=== PATIENT | male | born 1950 | race Caucasian/White ===

== ENCOUNTER → 2019-08-16 | Outpatient (CLI) | payer MEDICARE, OTHER ==
[~2019-08-16] MED LIST: BAYER CHEWABLE81 MG PO; BYSTOLIC 5 MG5 M1 PO; CHLORTHALIDONE25 MG PO; CRESTOR10 MG PO; HYDROCORTISONE30 G9 RECTAL; KEFLEX500 MG PO; MEDROLDOSEPACK PO; MICARDIS40 MG PO; PEPCID20 MG PO; XANAX 0.5 MG0.5 MG PO; ZETIA10 MG PO
== END ==
LOC: M.MRI 08-08 15:52
DX: M48.061 Spinal stenosis, lumbar region without neurogenic claudication (principal); M51.27 Other intervertebral disc displacement, lumbosacral region; G89.29 Other chronic pain; G57.01 Lesion of sciatic nerve, right lower limb

== ENCOUNTER → 2019-09-02 | Outpatient (CLI) | payer MEDICARE, OTHER ==
[~2019-09-02] MED LIST changes: +CARVEDILOL25 MG PO; +FUROSEMIDE 20 M20 MG PO; +Repatha
== END ==
LOC: M.PC 03:46
DX: M51.16 Intervertebral disc disorders with radiculopathy, lumbar region (principal); M47.26 Other spondylosis with radiculopathy, lumbar region; Z79.899 Other long term (current) drug therapy